=== PATIENT | female | born 1955 | race Two or more races ===

== ENCOUNTER 2025-01-07 12:35 | Emergency (ER) | payer OTHER ==
[~2025-01-07] VITALS: Ht 165.1 cm; Wt 76.2 kg
[2025-01-07] MEDS ORDERED: GABAPENTIN ER600 MG PO (12:45)
[2025-01-07] MEDS ORDERED: ARBLI10 MG/1 ML (12:45)
[2025-01-07] MEDS ORDERED: LYRICA20 MG/1 ML PO (12:46)
[2025-01-07] MEDS ORDERED: ORPHENADRINE CITRATE 30 MG/ML AMPUL ONE (13:12)
[2025-01-07] MEDS ORDERED: DEXAMETHASONE SODIUM PHOSPHATE 4 MG/ML VIAL ONE (13:13)
[2025-01-07] MEDS ORDERED: DEXAMETHASONE SODIUM PHOSPHATE 4 MG/ML VIAL IM ONE (13:15)
[2025-01-07] MEDS ORDERED: ORPHENADRINE CITRATE 30 MG/ML AMPUL IM ONE (13:15)
[2025-01-07] MEDS ORDERED: TYLENOL ARTHRI650 MG PO (14:53)
[2025-01-07] MEDS ORDERED: NORFLEX100MG PO (14:53)
== END 2025-01-07 16:49 ==
LOC: ER 12:35
DX: M25.561 Pain in right knee (principal); I10 Essential (primary) hypertension; M79.7 Fibromyalgia; Z88.6 Allergy status to analgesic agent; Z88.8 Allergy status to other drugs, medicaments and biological substances